=== PATIENT | male | born 1985 | race Caucasian/White ===

== ENCOUNTER → 2017-04-04 | Outpatient (CLI) | payer OTHER | END | disposition home or self-care (01) | LOC: GMAB 10:45 | PROVIDERS: ATTEND Family Medicine | DX: E03.9 Hypothyroidism, unspecified (principal) ==

== ENCOUNTER → 2017-09-16 | Outpatient (CLI) | payer OTHER | END | disposition home or self-care (01) | LOC: GMAB 10:43 | PROVIDERS: ATTEND Family Medicine | DX: E03.9 Hypothyroidism, unspecified (principal) ==

== ENCOUNTER → 2018-04-28 | Outpatient (CLI) | payer OTHER | LOC: LAB.O 07:40 | DX: E78.1 Pure hyperglyceridemia (principal); E78.5 Hyperlipidemia, unspecified ==

== ENCOUNTER → 2018-05-22 | Outpatient (CLI) | payer OTHER | LOC: GMAE 10:09 | PROVIDERS: ATTEND Family Medicine | DX: E03.9 Hypothyroidism, unspecified (principal) ==

== ENCOUNTER → 2019-06-24 | Outpatient (CLI) | payer OTHER | LOC: GMAE 13:58 | PROVIDERS: ATTEND Family Medicine | DX: E03.9 Hypothyroidism, unspecified (principal); I10 Essential (primary) hypertension; E78.2 Mixed hyperlipidemia ==

== ENCOUNTER → 2020-01-15 | Outpatient (CLI) | payer OTHER | LOC: GMAE 10:10 | PROVIDERS: ATTEND Family Medicine | DX: R19.7 Diarrhea, unspecified (principal) ==

== ENCOUNTER → 2020-04-04 | Outpatient (CLI) | payer OTHER | LOC: GMAE 16:53 | PROVIDERS: ATTEND Family Medicine | DX: R19.7 Diarrhea, unspecified (principal); E03.9 Hypothyroidism, unspecified ==